=== PATIENT | female | born 1995 | race African-American/Black ===

== ENCOUNTER 2022-07-23 22:00 | Emergency (ER) | payer SELFPAY ==
[2022-07-23] MEDS ORDERED: KETOROLAC 30 MG/ML INJ ONE (22:45)
[2022-07-23] MEDS ORDERED: DIAZEPAM 2 MG TABLET ONE (22:45)
[2022-07-23 23:59] LABS: SARS-COV-2 RT PCR POSITIVE (NEGATIVE)
--- NOTE | 2022-07-24 00:04 | EDPHYS ---
Physician Documentation [facility] Name: Ayaka Cassidy Age: 27 yrs Sex: Female : 1995 Arrival Date: 07/23/2022 Time: 22:05 Bed 17 Private MD: ED Physician Lane Cuello HPI: 07/23 23:14 This 27 yrs old Female presents to ER via Ambulatory with complaints of Headache. snw 23:14 The patient complains of pain to the forehead. The patient describes the headache as snw aching, a pressure. Onset: The symptoms/episode began/occurred acutely. Associated signs and symptoms: Pertinent positives: sore throat, cough. Severity of symptoms: At its worst the pain was moderate. Headache History: Denies prior headaches. The symptoms are alleviated by nothing. the symptoms are aggravated by coughing. The patient has not recently seen a physician. Historical: - Allergies: 22:34 No Known Allergies; em6 - PMHx: 22:34 Asthma; em6 - Immunization history:: Adult Immunizations not up to date. - Social history:: Smoking status: Patient denies any tobacco usage or history of. ROS: 23:15 Eyes: Negative for injury, pain, redness, and discharge. snw 23:15 Neck: Negative for injury, pain, and swelling, Cardiovascular: Negative for chest pain, palpitations, and edema. 23:15 Abdomen/GI: Negative for abdominal pain, nausea, vomiting, diarrhea, and constipation, Back: Negative for injury and pain, : Negative for injury, bleeding, discharge, and swelling, MS/Extremity: Negative for injury and deformity, Skin: Negative for injury, rash, and discoloration, Neuro: Negative for headache, weakness, numbness, tingling, and seizure. 23:15 Constitutional: Positive for body aches, chills, malaise. 23:15 ENT: Positive for sinus congestion, sore throat. 23:15 Respiratory: Positive for cough, shortness of breath, at rest. Exam: 23:16 Head/Face: Normocephalic, atraumatic. snw 23:16 ENT: Nares patent. No nasal discharge, no septal abnormalities noted. Tympanic membranes are normal and external auditory canals are clear. Oropharynx with no redness, swelling, or masses, exudates, or evidence of obstruction, uvula midline. Mucous membranes moist. Neck: Trachea midline, no thyromegaly or masses palpated, and no cervical lymphadenopathy. Supple, full range of motion without nuchal rigidity, or vertebral point tenderness. No Meningismus. Chest/axilla: Normal chest wall appearance and motion. Nontender with no deformity. No lesions are appreciated. Cardiovascular: Regular rate and rhythm with a normal S1 and S2. No gallops, murmurs, or rubs. Normal PMI, no JVD. No pulse deficits. Respiratory: Lungs have equal breath sounds bilaterally, clear to auscultation and percussion. No rales, rhonchi or wheezes noted. No increased work of breathing, no retractions or nasal flaring. Abdomen/GI: Soft, non-tender, with normal bowel sounds. No distension or tympany. No guarding or rebound. No evidence of tenderness throughout. Back: No spinal tenderness. No costovertebral tenderness. Full range of motion. Skin: Warm, dry with normal turgor. Normal color with no rashes, no lesions, and no evidence of cellulitis. MS/ Extremity: Pulses equal, no cyanosis. Neurovascular intact. Full, normal range of motion. Neuro: Awake and alert, GCS 15, oriented to person, place, time, and situation. Cranial nerves II-XII grossly intact. Motor strength 5/5 in all extremities. Sensory grossly intact. Cerebellar exam normal. Normal gait. Psych: Awake, alert, with orientation to person, place and time. Behavior, mood, and affect are within normal limits. 23:16 Constitutional: The patient appears alert, awake, uncomfortable. 23:16 Eyes: Periorbital structures: swelling, that is mild, bilaterally, Conjunctiva: normal. Vital Signs: 22:31 BP 113 / 79; Pulse 79; Resp 18; Temp 98.3; Pulse Ox 100% on R/A; Weight 61.23 kg; em6 Height 5 ft. 7 in. (170.18 cm); Pain 8/10; 22:36 BP 113 / 79; Pulse 79; Resp 16 S; Pulse Ox 100% on R/A; ha1 23:18 BP 107 / 71; Pulse 79; Resp 16 S; Pulse Ox 100% on R/A; ha1 07/24 00:18 BP 110 / 70; Pulse 79; Resp 16 S; Pulse Ox 100% on R/A; ha1 07/23 22:31 Body Mass Index 21.14 (61.23 kg, 170.18 cm) em6 MDM: 07/23 22:12 Patient medically screened. snw 07/24 00:18 Data reviewed: vital signs, nurses notes. Data interpreted: Pulse oximetry: on room air snw is 100 %. Interpretation: normal. Counseling: I had a detailed discussion with the patient and/or guardian regarding: the historical points, exam findings, and any diagnostic results supporting the discharge/admit diagnosis, lab results, the need for outpatient follow up, to return to the emergency department if symptoms worsen or persist or if there are any questions or concerns that arise at home. Response to treatment: the patient's symptoms have mildly improved after treatment. Special discussion: Based on the history and exam findings, there is no indication for further emergent testing or inpatient evaluation. I discussed with the patient/guardian the need to see the primary care provider for further evaluation of the symptoms. 07/23 22:32 Order name: Strep; Complete Time: 23:36 snw 07/23 22:32 Order name: COVID-19/FLU A+B/RSV; Complete Time: 00:02 snw 07/23 23:37 Order name: Throat Culture EDMS Administered Medications: 07/23 22:54 Drug: Ketorolac 30 mg Route: IM; Site: right vastus lateralis; ha1 23:17 Follow up: Response: No adverse reaction; Pain is decreased ha1 22:54 Drug: Valium (diazepam) 2 mg Route: PO; ha1 23:17 Follow up: Response: No adverse reaction; RASS: Alert and Calm (0) ha1 Disposition: 07/24 02:57 Co-signature as Attending Physician, Lane Cuello MD I agree with the assessment and rt plan of care. Disposition Summary: 07/24/22 00:03 Discharge Ordered Location: Home snw Condition: Stable snw Diagnosis - SARS-associated coronavirus as the cause of diseases classified elsewhere snw Followup: snw - With: Emergency Department - When: As needed - Reason: Worsening of condition Followup: snw - With: Private Physician - When: 1 week - Reason: Recheck today's complaints, Continuance of care, Re-evaluation by your physician Discharge Instructions: - Discharge Summary Sheet snw - Aspirin and Your Heart snw - COVID-19 snw - 10 Things You Can Do to Manage Your COVID-19 Symptoms at Home - [facility] snw - COVID-19: Quarantine vs. Isolation - [facility] snw - Prevent the Spread of COVID-19 if You Are Sick - [facility] snw Forms: - Medication Reconciliation Form snw - Thank You Letter snw - Antibiotic Education snw - Prescription Opioid Use snw Prescriptions: - albuterol sulfate 90 mcg/actuation Inhalation HFA aerosol inhaler - inhale 2 puff by INHALATION route every 4-6 hours; 1 vial; Refills: 0, Product snw Selection Permitted - Prednisone 20 mg Oral Tablet - take 2 tablets by ORAL route once daily for 5 days; 10 tablet; Refills: 0, snw Product Selection Permitted - Zyrtec 10 mg Oral Tablet - take 1 tablet by ORAL route once daily As needed; 20 tablet; Refills: 0, snw Product Selection Permitted - Pepcid 20 mg Oral Tablet - take 1 tablet by ORAL route once daily; 20 tablet; Refills: 0, Product snw Selection Permitted Signatures: Dispatcher [employer] EDMS Molly Mitchell, OUTBOUND SALES CONSULTANT-C OUTBOUND SALES CONSULTANT-Csnw Sirena Horton RN RN ha1 Karen June RN RN em6 Lane Cuello MD MD rt
--- NOTE | 2022-07-24 00:04 | ER ---
Nurse's Notes [facility] Name: Ayaka Cassidy Age: 27 yrs Sex: Female : 1995 Arrival Date: 07/23/2022 Time: 22:05 Bed 17 Private MD: Diagnosis: SARS-associated coronavirus as the cause of diseases classified elsewhere Presentation: 07/23 22:31 Chief complaint: Patient states: " two days I started having a headache and chills em6 sweats. I have history of asthma and I felt like I couldn't breath". Coronavirus screen: Client denies travel out of the [place] in the last 14 days. Ebola Screen: Patient negative for fever greater than or equal to 101.5 degrees Fahrenheit, and additional compatible Ebola Virus Disease symptoms. Initial Sepsis Screen: Does the patient meet any 2 criteria? No. Patient's initial sepsis screen is negative. Does the patient have a suspected source of infection? No. Patient's initial sepsis screen is negative. Risk Assessment: Do you want to hurt yourself or someone else? Patient reports no desire to harm self or others. Onset of symptoms was July 21, 2022. 22:31 Method Of Arrival: Ambulatory em6 22:31 Acuity: JOSE 3 em6 Triage Assessment: 22:32 Headache History: Denies prior headaches. General: Appears in no apparent distress. em6 Behavior is cooperative. Pain: Complains of pain in head Pain does not radiate. Pain currently is 8 out of 10 on a pain scale. Quality of pain is described as throbbing, Pain began 2-3 days ago. Also complains of shortness of breath. EENT: No signs and/or symptoms were reported regarding the EENT system. Neuro: Level of Consciousness is awake, alert, obeys commands, Oriented to person, place, time, situation, Reports headache frontal area. Cardiovascular: Patient's skin is warm and dry. Respiratory: Airway is patent Respiratory effort is even, unlabored, Respiratory pattern is regular, symmetrical. GI: Abdomen is non-distended, Abd is soft and non tender X 4 quads. : No signs and/or symptoms were reported regarding the genitourinary system. Derm: No signs and/or symptoms reported regarding the dermatologic system. Musculoskeletal: Circulation, motion, and sensation intact. Range of motion: intact in all extremities. Historical: - Allergies: 22:34 No Known Allergies; em6 - PMHx: 22:34 Asthma; em6 - Immunization history:: Adult Immunizations not up to date. - Social history:: Smoking status: Patient denies any tobacco usage or history of. Screenin:32 Abuse screen: Denies threats or abuse. Nutritional screening: No deficits noted. em6 Tuberculosis screening: No symptoms or risk factors identified. 22:37 Fall Risk None identified. ha1 Assessment: 22:37 General: see triage. ha1 23:18 Reassessment: Patient and/or family updated on plan of care and expected duration. Pain ha1 level reassessed. Patient is alert, oriented x 3, equal unlabored respirations, skin warm/dry/pink. pain 3/10. 07/24 00:18 Reassessment: Patient and/or family updated on plan of care and expected duration. Pain ha1 level reassessed. Patient is alert, oriented x 3, equal unlabored respirations, skin warm/dry/pink. being discharged Patient states feeling better. Vital Signs: 07/23 22:31 BP 113 / 79; Pulse 79; Resp 18; Temp 98.3; Pulse Ox 100% on R/A; Weight 61.23 kg; em6 Height 5 ft. 7 in. (170.18 cm); Pain 8/10; 22:36 BP 113 / 79; Pulse 79; Resp 16 S; Pulse Ox 100% on R/A; ha1 23:18 BP 107 / 71; Pulse 79; Resp 16 S; Pulse Ox 100% on R/A; ha1 07/24 00:18 BP 110 / 70; Pulse 79; Resp 16 S; Pulse Ox 100% on R/A; ha1 07/23 22:31 Body Mass Index 21.14 (61.23 kg, 170.18 cm) em6 ED Course: 07/23 22:05 Patient arrived in ED. ja2 22:06 Molly Mitchell FNP-C [facility]. snw 22:[address] Lane Culelo MD is Attending Physician. snw 22:32 Triage completed. em6 22:34 Arm band placed on. em6 22:34 Bed in low position. Call light in reach. Side rails up X2. Pulse ox on. NIBP on. Warm em6 blanket given. 22:36 Sirena Horton, RN is Primary Nurse. ha1 23:17 COVID-19/FLU A+B/RSV Sent. ha1 23:17 Strep Sent. ha1 23:59 Notified Nurse Practitioner and/or Physician Installment Dealer of a critical lab result(s), kl covid positive. 07/24 00:19 No provider procedures requiring assistance completed. Patient did not have IV access ha1 during this emergency room visit. Administered Medications: 07/23 22:54 Drug: Ketorolac 30 mg Route: IM; Site: right vastus lateralis; ha1 23:17 Follow up: Response: No adverse reaction; Pain is decreased ha1 22:54 Drug: Valium (diazepam) 2 mg Route: PO; ha1 23:17 Follow up: Response: No adverse reaction; RASS: Alert and Calm (0) ha1 Medication: 07/24 00:20 VIS not applicable for this client. ha1 Outcome: 00:03 Discharge ordered by . lily 00:19 Discharged to home ambulatory. ha1 00:19 Condition: stable 00:19 Discharge instructions given to patient, Instructed on discharge instructions, follow up and referral plans. medication usage, Demonstrated understanding of instructions, follow-up care, medications, Prescriptions given X 4. 00:20 Patient left the ED. ha1 Signatures: Lakeshia Delaney RN RN kl Waters, Shelly, DERMATOLOGIST MANAGING PARTNER-C DERMATOLOGIST MANAGING PARTNER-Csnw Marycruz Warren Heidy, RN RN ha1 Karen June RN RN em6
[2022-07-24 00:45] VITALS: TEMP 98.3; O2SAT 100
[2022-07-24 00:49] VITALS: BP 110/70
== END 2022-07-24 00:20 | disposition home or self-care (01) ==
LOC: ER 22:00
DX: U07.1 COVID-19 (principal); J45.909 Unspecified asthma, uncomplicated
CPT/HCPCS: 0241U; 87070; 87081; 96372; 99284